=== PATIENT | female | born 1960 | race Asian ===

== ENCOUNTER 2019-03-03 13:07 | Emergency (ER) | payer MEDICARE ==
--- NOTE | 2019-03-03 14:13 | Emergency Department Report ---
ED Lower Extremity HPI - General Chief Complaint: Extremity Injury, Upper Stated Complaint: FELL AND BLEEDING Source: patient Mode of arrival: Ambulatory Limitations: No Limitations - History of Present Illness MD Complaint: other (Pt tripped and fell hitting her lower legs just below her knees on the steps. She was delivering pizza) -: Sudden Injury: Leg: Right, Left (left and right leg just below knees) Type of Injury: blunt, puncture wound (puncture wound to anterior left trevizo) Place: street/outdoors Improves With: rest Worsens With: palpation Context: direct blow Associated Symptoms: swelling. denies: unable to bear weight, able to partially bear weight Treatments Prior to Arrival: bandage - Related Data Home Medications Medication Instructions Recorded Confirmed Last Taken traMADoL [Ultram 50 MG tab] 50 mg PO Q6HR PRN 05/25/17 05/25/17 Unknown Previous Rx's Medication Instructions Recorded Last Taken Type Calcium Carbonate [Tums 500MG CHEW] 1,000 mg PO QDAY #30 tablet 05/31/17 Unknown Rx Cinacalcet [Sensipar] 30 mg PO QDAY #30 tablet 05/31/17 Unknown Rx Docusate Sodium [Colace CAP] 100 mg PO BID PRN #60 capsule 05/31/17 Unknown Rx Metoprolol [Lopressor TAB] 50 mg PO BID #60 tablet 05/31/17 Unknown Rx Midodrine HCl 10 mg PO TID #90 tablet 05/31/17 Unknown Rx Pantoprazole [Protonix TAB] 40 mg PO QDAY #30 tablet 05/31/17 Unknown Rx Sevelamer Carbonate [Renvela] 800 mg PO BID #60 tablet 05/31/17 Unknown Rx oxyCODONE /ACETAMINOPHEN [Percocet 1 tab PO Q6H PRN #20 tablet 05/31/17 Unknown Rx 5/325 mg] Allergies Allergy/AdvReac Type Severity Reaction Status Date / Time No Known Allergies Allergy Unverified 05/25/17 15:07 ED Review of Systems ROS: Stated complaint: FELL AND BLEEDING Other details as noted in HPI Comment: All other systems reviewed and negative Cardiovascular: denies: chest pain, palpitations, dyspnea on exertion Gastrointestinal: denies: abdominal pain, nausea Musculoskeletal: other (mild swelling to anterior right and left leg just below knees) Neurological: denies: headache, confusion, abnormal gait ED Past Medical Hx - Past Medical History Hx Hypertension: No Hx Renal Disease: Yes (ESRD M-W-F) Additional medical history: Afib - Surgical History Additional Surgical History: AV graft left arm, vas cath rigth chest - Social History Smoking Status: Never Smoker Substance Use Type: None - Medications Home Medications: Home Medications Medication Instructions Recorded Confirmed Last Taken Type traMADoL [Ultram 50 MG tab] 50 mg PO Q6HR PRN 18 05/25/17 Unknown History Calcium Carbonate [Tums 500MG CHEW] 1,000 mg PO QDAY #30 tablet 05/31/17 Unknown Rx Cinacalcet [Sensipar] 30 mg PO QDAY #30 tablet 05/31/17 Unknown Rx Docusate Sodium [Colace CAP] 100 mg PO BID PRN #60 capsule 05/31/17 Unknown Rx Metoprolol [Lopressor TAB] 50 mg PO BID #60 tablet 05/31/17 Unknown Rx Midodrine HCl 10 mg PO TID #90 tablet 05/31/17 Unknown Rx Pantoprazole [Protonix TAB] 40 mg PO QDAY #30 tablet 05/31/17 Unknown Rx Sevelamer Carbonate [Renvela] 800 mg PO BID #60 tablet 05/31/17 Unknown Rx oxyCODONE /ACETAMINOPHEN [Percocet 1 tab PO Q6H PRN #20 tablet 05/31/17 Unknown Rx 5/325 mg] ED Physical Exam - General Limitations: No Limitations General appearance: alert - Head Head exam: Present: atraumatic, normal inspection - Eye Eye exam: Present: normal appearance - Neck Neck exam: Present: normal inspection, full ROM, other (no vertebral point tenderness) - Respiratory Respiratory exam: Present: normal lung sounds bilaterally - Cardiovascular Cardiovascular Exam: Present: regular rate, normal rhythm - GI/Abdominal GI/Abdominal exam: Present: soft - Rectal Rectal exam: Present: deferred - Extremities Exam Extremities exam: Present: full ROM, tenderness (tenderness and mild swelling just below both knees. ), other (left anterior lower leg with puncture wound. No active bleeding . Left foot with toe amuputaion ) - Neurological Exam Neurological exam: Present: alert, altered, oriented X3 - Psychiatric Psychiatric exam: Present: normal affect - Skin Skin exam: Present: warm, dry, intact ED Course Vital Signs 03/03/19 03/03/19 03/03/19 13:13 13:33 13:41 Temperature 97.7 F 98.1 F Pulse Rate 111 H 126 H 113 H Respiratory 18 17 Rate Blood Pressure 94/59 O2 Sat by Pulse 98 99 Oximetry 03/03/19 03/03/19 03/03/19 13:45 14:00 14:15 Temperature Pulse Rate 120 H 108 H 116 H Respiratory 11 L 19 13 Rate Blood Pressure 94/62 94/57 94/57 O2 Sat by Pulse 98 97 96 Oximetry 03/03/19 03/03/19 03/03/19 14:30 14:45 15:01 Temperature Pulse Rate 100 H 100 H 106 H Respiratory 12 16 9 L Rate Blood Pressure 96/61 96/61 93/63 O2 Sat by Pulse 96 98 99 Oximetry 03/03/19 15:15 Temperature Pulse Rate 104 H Respiratory 22 Rate Blood Pressure 93/63 O2 Sat by Pulse 98 Oximetry ED Lower Extremity MDM - Lab Data Result diagrams: 03/03/19 13:35 03/03/19 13:35 - Radiology Data Radiology results: report reviewed Critical Care Time: No Critical care attestation.: If time is entered above; I have spent that time in minutes in the direct care of this critically ill patient, excluding procedure time. ED Disposition Clinical Impression: Puncture wound Contusion of lower leg, left Qualifiers: Encounter type: initial encounter Qualified Code(s): S80.12XA - Contusion of left lower leg, initial encounter Disposition: - TO HOME OR SELFCARE Is pt being admited?: No Does the pt Need Aspirin: No Condition: Stable Instructions: Puncture Wound (ED), Contusion in Adults (ED) Additional Instructions: Follow up with PCP in 2-3 days. Wash puncture wound with soap and water apply neosporin ointment daily. Apply cool compress to site .Continue with Advil for pain . Your X-ray today shows no s/s of fracture or dislocation. Referrals: [facility] [Primary Care Provider] - 3-5 Days Time of Disposition: 15:30
[2019-03-03 14:18] LABS: Hematocrit 34.7 % (30.3-42.9); Hemoglobin 11.2 gm/dl (10.1-14.3); Mean Corpuscular HGB Conc 32 % (30-34); Mean Corpuscular Volume 88 fl (79-97); Platelet Count 237 K/mm3 (140-440); Red Blood Count 3.93 M/mm3 (3.65-5.03); Red Cell Distribution Width 16.4 % (13.2-15.2)
[2019-03-03 14:22] LABS: INR 1.84 (0.87-1.13)
[2019-03-03 14:23] LABS: Partial Thromboplastin Time 32.9 Sec. (24.2-36.6)
[2019-03-03 14:44] LABS: Albumin 3.9 g/dL (3.9-5)
--- NOTE | 2019-03-03 14:44 | XRay Report ---
LEFT TIBIA-FIBULA 2 VIEW(S) INDICATION / CLINICAL INFORMATION: TRUAMA /fall COMPARISON: None available. FINDINGS: BONES / JOINT(S): No acute fracture or subluxation. Possible old, healed fracture at the medial malle olus, to be correlated with patient history. SOFT TISSUES: No significant abnormality. Signer Name: Remy Gtz MD Signed: 03/03/2019 2:39 PM Workstation Name: [id number]
[2019-03-03 15:13] VITALS: BP 93/63
== END 2019-03-03 15:35 | disposition home or self-care (01) ==
LOC: ED 13:07
DX: S80.12XA Contusion of left lower leg, initial encounter (principal); S81.832A Puncture wound without foreign body, left lower leg, initial encounter; W10.9XXA Fall (on) (from) unspecified stairs and steps, initial encounter; Y93.89 Activity, other specified; Y92.89 Other specified places as the place of occurrence of the external cause; Y99.0 Civilian activity done for income or pay
CPT/HCPCS: 36415; 80053; 85027; 85610; 85730; 86850; 86900; 86901; 99284